=== PATIENT | male | born 1935 | race Caucasian/White ===

== ENCOUNTER 2022-01-01 00:33 | Inpatient (IN) | payer MEDICARE ==
[2022-01-01] VITALS (13 sets, daily range): BP systolic 90–128; BP diastolic 47–73
[~2022-01-01] VITALS: Ht 170.2 cm; Wt 108.9 kg
[2022-01-01] MEDS ORDERED: mag hydrox/Alum hydrox/simeth 30ml oral suspension PO PRN (03:25)
[2022-01-01] MEDS: normal saline 1000ml 1,000 ML IV SCH ×3 (03:25→23:57)
[2022-01-01] MEDS ORDERED: bisacodyl 10mg suppository rectal RC PRN (03:25)
[2022-01-01] MEDS ORDERED: acetaminophen 325mg tablet PO PRN ×2 (03:25)
[2022-01-01] MEDS ORDERED: ondansetron/PF 4mg/2ml inj IV PRN (03:25)
[2022-01-01] MEDS ORDERED: morphine 2 MG/ML inj. syringe IV PRN (03:25)
[2022-01-01] MEDS ORDERED: HYDROcodone/acetaminophen 5mg/325mg tablet PO PRN (03:25)
[2022-01-01] MEDS ORDERED: ondansetron 4mg rapidly disintigrating tab PO PRN (03:25)
[2022-01-01] MEDS ORDERED: diphenhydrAMINE 50 mg/ml inj IV PRN (03:25)
[2022-01-01] MEDS ORDERED: acetaminophen 650mg rectal suppository RC PRN (03:25)
[2022-01-01] MEDS ORDERED: diphenhydrAMINE 25mg capsule PO PRN (03:25)
[2022-01-01] MEDS ORDERED: magnesium hydroxide 30ml (MOM) UD suspension PO PRN (03:25)
[2022-01-01] MEDS ORDERED: PANT40TA54 PO (04:02)
[2022-01-01] MEDS ORDERED: FLO0.4C PO (04:02)
[2022-01-01] MEDS ORDERED: POTA-207 PO (04:02)
[2022-01-01] MEDS ORDERED: FURO40TA4 PO (04:02)
[2022-01-01] MEDS ORDERED: METO-395 PO (04:02)
[2022-01-01] MEDS ORDERED: WARF2.5T82 PO (04:02)
[2022-01-01] MEDS ORDERED: WARF-55 PO (04:02)
[2022-01-01] MEDS ORDERED: BUDE10.2 IH (04:02)
[2022-01-01] MEDS ORDERED: NIFE90TA61 PO (04:02)
[2022-01-01] MEDS ORDERED: PRED10TA PO (04:02)
[2022-01-01] MEDS ORDERED: LOSA25TA41 PO (04:02)
[2022-01-01] MEDS ORDERED: OXYB10TA30 PO (04:02)
[2022-01-01] MEDS ORDERED: PRE1T PO (04:02)
[2022-01-01] MEDS ORDERED: ASPI-611 PO (04:03)
[2022-01-01] MEDS ORDERED: phytonadione inj. 3 MG in normal saline 100ml IV soln 100 ML IV ONE (04:05)
[2022-01-01 05:22] LABS: MAGNESIUM 2.4 MG/DL (1.5-2.4); PHOSPHORUS 3.1 MG/DL (2.3-4.5)
[2022-01-01] MEDS: pantoprazole 40MG/NS 100ML BAG 100 ML IV SCH ×4 (06:19→20:27)
--- NOTE | 2022-01-01 06:34 | NUR ---
Patient in room PCU 3023. I have received report from Bentley and had the opportunity to ask questions and assume patient care.
[2022-01-01] MEDS: docusate sod 100mg capsule PO SCH ×2 (08:05→20:00)
[2022-01-01] MEDS ORDERED: potassium Cl 20 mEq SR tablet PO PRN (08:35)
[2022-01-01] MEDS ORDERED: magnesium Cl slow-release 64mg tablet PO PRN (08:35)
[2022-01-01] MEDS ORDERED: potassium Cl 40MEQ/1/2NS 520ml 520 ML IV PRN (08:35)
[2022-01-01] MEDS ORDERED: magnesium 4gm in 100ml NS 100 ML IV PRN (08:35)
[2022-01-01 08:37] LABS: APTT 28 SECONDS (22-32)
[2022-01-01 09:13] LABS: BASOPHILS % (AUTO) 0.4 % (0-1); EOSINOPHILS # (AUTO) 0.2 X10'3 (0-0.9); EOSINOPHILS % (AUTO) 2.7 % (0-6); HEMOGLOBIN 7.3 g/dl (14.0-17.9); LYMPHOCYTES # (AUTO) 0.4 X10'3 (1.1-4.8); LYMPHOCYTES % (AUTO) 5.7 % (21-51); MEAN CORPUSCULAR HGB CONC 33.6 g/dL (33.0-36.5); MEAN PLATELET VOLUME 7.5 FL (7.4-10.4); MONOCYTES # (AUTO) 0.5 X10'3 (0-0.9); MONOCYTES % (AUTO) 6.9 % (2-12); NEUTROPHILS # (AUTO) 5.9 X10'3 (1.8-7.7); NEUTROPHILS % (AUTO) 84.3 % (42-75); PLATELET COUNT 147 X10'3 (140-440); RED BLOOD COUNT 2.28 X10'6 (4.70-6.10); RED CELL DISTRIBUTION WIDTH 17.4 % (11.5-14.5)
[2022-01-01 09:18] LABS: HEMATOCRIT 21.7 % (42.0-52.0)
[2022-01-01] MEDS: oxybutynin 5mg tablet PO SCH ×2 (09:18→20:20)
[2022-01-01] MEDS: metoprolol succinate 25mg (24-HOUR) SR. Tablet PO SCH (09:18)
[2022-01-01] MEDS: tamsulosin 0.4mg capsule PO SCH (09:18)
[2022-01-01] MEDS: NIFEdipine XL 30mg tablet PO SCH (09:19)
--- NOTE | 2022-01-01 09:34 | NUR ---
Dr. Doty made aware via [facility] that patient had a critical hematocrit-21.7 called in at 0915 and his Hgb-7.3. Waiting for recommendations.
[2022-01-01 09:41] LABS: ALANINE AMINOTRANSFERASE 13 U/L (12-78); ALBUMIN 2.7 G/DL (3.4-5.0); ALBUMIN/GLOBULIN RATIO 1.2 (1.1-1.5); ALKALINE PHOSPHATASE 62 IU/L (46-116); ANION GAP 11 (8-16); ASPARTATE AMINO TRANSFERASE 11 U/L (10-37); BILIRUBIN,TOTAL 0.7 MG/DL (0.1-1.0); BLOOD UREA NITROGEN 26 MG/DL (7-18); CHLORIDE 113 MMOL/L (99-107); CREATININE 0.84 MG/DL (0.60-1.10); GLUCOSE 90 MG/DL (70-104); POTASSIUM 3.6 MMOL/L (3.5-5.1); SODIUM 147 MMOL/L (135-145); TOTAL CARBON DIOXIDE 23.5 MMOL/L (24-32); TOTAL PROTEIN 4.9 G/DL (6.4-8.2); eGFR 87 ML/MIN
[2022-01-01] MEDS ORDERED: fentaNYL/PF 50MCG/1 ML 2ML syringe ONE (11:55)
[2022-01-01] MEDS ORDERED: LIDOcaine Viscous 15ml cup ONE (11:56)
[2022-01-01] MEDS ORDERED: MIDAZolam 1 MG/ML 5ML VIAL ONE (11:56)
[2022-01-01 15:01] LABS: HEMOGLOBIN 7.3 g/dl (14.0-17.9); MEAN CORPUSCULAR HEMOGLOBIN 32.4 PG (27.0-31.0); MEAN CORPUSCULAR HGB CONC 33.7 g/dL (33.0-36.5); MEAN CORPUSCULAR VOLUME 96.1 FL (78-98); MEAN PLATELET VOLUME 7.2 FL (7.4-10.4); PLATELET COUNT 144 X10'3 (140-440); RED BLOOD COUNT 2.26 X10'6 (4.70-6.10); RED CELL DISTRIBUTION WIDTH 17.8 % (11.5-14.5); WHITE BLOOD COUNT 6.3 X10'3 (4.5-11.0)
[2022-01-01 15:08] LABS: HEMATOCRIT 21.7 % (42.0-52.0)
[2022-01-01] MEDS: albuterol 2.5 MG/3 ML nebule NEB SCH ×2 (16:46→20:30)
--- NOTE | 2022-01-01 16:52 | NUR ---
Dr. Doty made aware via [facility] messenger that patient's hematocrit-21.7 called in.
--- NOTE | 2022-01-01 17:10 | NUR ---
Patient returned from his procedure with no s/s of distress noted. He denied pain on arrival to the unit. Will continue to monitor.
--- NOTE | 2022-01-01 18:11 | NUR ---
Problems reprioritized. Patient report given, questions answered & plan of care reviewed with Jennyfer.
--- NOTE | 2022-01-01 18:41 | NUR ---
Patient in room PCU 3023. I have received report from MATHEW Novak and had the opportunity to ask questions and assume patient care.
[2022-01-01] MEDS ORDERED: non-formulary drug (Budesonide/Formoterol Fumarate (Symbicort 160-4.5 Mcg Inhaler) 2 PUFFS IH SCH (20:00)
[2022-01-01] MEDS: K and/or MAG REPLACEMENT MC SCH (20:00)
[2022-01-01] MEDS: budesonide 0.5mg/2ml UD nebule IH SCH (20:26)
[2022-01-01] MEDS ORDERED: temazepam 15mg capsule PO PRN (21:00)
[2022-01-01 21:03] LABS: HEMOGLOBIN 7.2 g/dl (14.0-17.9); MEAN CORPUSCULAR HGB CONC 33.1 g/dL (33.0-36.5); MEAN CORPUSCULAR VOLUME 96.8 FL (78-98); MEAN PLATELET VOLUME 7.6 FL (7.4-10.4); PLATELET COUNT 150 X10'3 (140-440); RED BLOOD COUNT 2.24 X10'6 (4.70-6.10); WHITE BLOOD COUNT 6.9 X10'3 (4.5-11.0)
[2022-01-01 21:15] LABS: HEMATOCRIT 21.7 % (42.0-52.0)
[2022-01-02] VITALS (11 sets, daily range): BP systolic 90–120; BP diastolic 36–56
[2022-01-02] MEDS: pantoprazole 40MG/NS 100ML BAG 100 ML IV SCH ×5 (01:00→21:26)
[2022-01-02 03:05] LABS: BASOPHILS % (AUTO) 0.3 % (0-1); EOSINOPHILS # (AUTO) 0.2 X10'3 (0-0.9); EOSINOPHILS % (AUTO) 2.7 % (0-6); LYMPHOCYTES # (AUTO) 0.6 X10'3 (1.1-4.8); LYMPHOCYTES % (AUTO) 10.2 % (21-51); MEAN CORPUSCULAR HGB CONC 33.3 g/dL (33.0-36.5); MEAN CORPUSCULAR VOLUME 96.1 FL (78-98); MEAN PLATELET VOLUME 7.5 FL (7.4-10.4); MONOCYTES # (AUTO) 0.5 X10'3 (0-0.9); MONOCYTES % (AUTO) 8.2 % (2-12); NEUTROPHILS # (AUTO) 4.5 X10'3 (1.8-7.7); NEUTROPHILS % (AUTO) 78.6 % (42-75); PLATELET COUNT 141 X10'3 (140-440); RED BLOOD COUNT 2.05 X10'6 (4.70-6.10); RED CELL DISTRIBUTION WIDTH 18.1 % (11.5-14.5); WHITE BLOOD COUNT 5.7 X10'3 (4.5-11.0)
[2022-01-02 03:20] LABS: HEMATOCRIT 19.7 % (42.0-52.0); HEMOGLOBIN 6.6 g/dl (14.0-17.9)
[2022-01-02 03:44] LABS: ALANINE AMINOTRANSFERASE 11 U/L (12-78); ALBUMIN 2.6 G/DL (3.4-5.0); ALBUMIN/GLOBULIN RATIO 1.2 (1.1-1.5); ALKALINE PHOSPHATASE 61 IU/L (46-116); ANION GAP 10 (8-16); ASPARTATE AMINO TRANSFERASE 13 U/L (10-37); BILIRUBIN,TOTAL 0.5 MG/DL (0.1-1.0); BLOOD UREA NITROGEN 25 MG/DL (7-18); BUN/CREATININE RATIO 27.5 (5.4-32.0); CALCIUM 7.7 MG/DL (8.5-10.1); CHLORIDE 115 MMOL/L (99-107); CREATININE 0.91 MG/DL (0.60-1.10); GLUCOSE 92 MG/DL (70-104); MAGNESIUM 2.4 MG/DL (1.5-2.4); PHOSPHORUS 3.9 MG/DL (2.3-4.5); POTASSIUM 3.7 MMOL/L (3.5-5.1); SODIUM 147 MMOL/L (135-145); TOTAL CARBON DIOXIDE 22.5 MMOL/L (24-32); TOTAL PROTEIN 4.7 G/DL (6.4-8.2); eGFR 79 ML/MIN
[2022-01-02 04:34] LABS: ANISOCYTOSIS 2+; HYPOCHROMASIA 1+; PLATELET ESTIMATE NORMAL; POLYCHROMASIA 1+
--- NOTE | 2022-01-02 07:00 | NUR ---
Problems reprioritized. Patient report given, questions answered & plan of care reviewed with MATHEW Novak.
[2022-01-02] MEDS ORDERED: non-formulary drug (Oxybutynin Chloride (Ditropan Xl) 1 TAB) PO SCH (08:00)
[2022-01-02] MEDS: K and/or MAG REPLACEMENT MC SCH ×2 (08:00→19:50)
[2022-01-02] MEDS: oxybutynin 5mg tablet PO SCH ×2 (08:41→19:54)
[2022-01-02] MEDS: tamsulosin 0.4mg capsule PO SCH (08:41)
[2022-01-02] MEDS: NIFEdipine XL 30mg tablet PO SCH (08:41)
[2022-01-02] MEDS: losartan 25mg tablet PO SCH (08:42)
[2022-01-02] MEDS: furosemide 40mg tablet PO SCH (08:42)
[2022-01-02] MEDS: docusate sod 100mg capsule PO SCH ×2 (08:42→19:53)
[2022-01-02] MEDS: metoprolol succinate 25mg (24-HOUR) SR. Tablet PO SCH (08:42)
[2022-01-02] MEDS: budesonide 0.5mg/2ml UD nebule IH SCH ×2 (09:00→20:42)
[2022-01-02] MEDS: albuterol 2.5 MG/3 ML nebule NEB SCH ×2 (10:01→14:54)
[2022-01-02] MEDS: normal saline 1000ml 1,000 ML IV SCH ×2 (13:01→21:26)
--- NOTE | 2022-01-02 13:20 | NUR ---
Blood transfusion completed. No s/s of transfusion reaction noted. Patient tolerates it well. Plan of care will continue.
[2022-01-02 14:48] LABS: HEMOGLOBIN 7.1 g/dl (14.0-17.9); MEAN CORPUSCULAR HEMOGLOBIN 31.9 PG (27.0-31.0); MEAN CORPUSCULAR HGB CONC 33.4 g/dL (33.0-36.5); MEAN CORPUSCULAR VOLUME 95.6 FL (78-98); MEAN PLATELET VOLUME 7.6 FL (7.4-10.4); PLATELET COUNT 133 X10'3 (140-440); RED BLOOD COUNT 2.23 X10'6 (4.70-6.10); RED CELL DISTRIBUTION WIDTH 17.7 % (11.5-14.5); WHITE BLOOD COUNT 6.6 X10'3 (4.5-11.0)
[2022-01-02 15:05] LABS: HEMATOCRIT 21.3 % (42.0-52.0)
--- NOTE | 2022-01-02 15:44 | NUR ---
Dr. Doty made aware via [facility] that patient's post hgb-7.3 and hct-21.3 called in by.
--- NOTE | 2022-01-02 18:44 | NUR ---
Problems reprioritized. Patient report given, questions answered & plan of care reviewed with Dipti.
[2022-01-02 20:56] LABS: HEMATOCRIT 22.1 % (42.0-52.0); HEMOGLOBIN 7.4 g/dl (14.0-17.9); MEAN CORPUSCULAR HEMOGLOBIN 31.7 PG (27.0-31.0); MEAN CORPUSCULAR HGB CONC 33.4 g/dL (33.0-36.5); MEAN PLATELET VOLUME 7.9 FL (7.4-10.4); PLATELET COUNT 142 X10'3 (140-440); RED BLOOD COUNT 2.32 X10'6 (4.70-6.10); RED CELL DISTRIBUTION WIDTH 18.3 % (11.5-14.5); WHITE BLOOD COUNT 7.3 X10'3 (4.5-11.0)
[2022-01-03] MEDS: pantoprazole 40MG/NS 100ML BAG 100 ML IV SCH ×5 (00:38→21:00)
[2022-01-03 02:00] VITALS: BP 122/63
[2022-01-03 06:57] LABS: BASOPHILS % (AUTO) 0.6 % (0-1); EOSINOPHILS # (AUTO) 0.3 X10'3 (0-0.9); EOSINOPHILS % (AUTO) 4.5 % (0-6); HEMOGLOBIN 7.3 g/dl (14.0-17.9); LYMPHOCYTES # (AUTO) 0.6 X10'3 (1.1-4.8); LYMPHOCYTES % (AUTO) 10.3 % (21-51); MEAN CORPUSCULAR HEMOGLOBIN 31.8 PG (27.0-31.0); MEAN CORPUSCULAR HGB CONC 33.2 g/dL (33.0-36.5); MEAN CORPUSCULAR VOLUME 95.7 FL (78-98); MEAN PLATELET VOLUME 7.8 FL (7.4-10.4); MONOCYTES # (AUTO) 0.6 X10'3 (0-0.9); MONOCYTES % (AUTO) 9.9 % (2-12); NEUTROPHILS # (AUTO) 4.6 X10'3 (1.8-7.7); NEUTROPHILS % (AUTO) 74.7 % (42-75); PLATELET COUNT 134 X10'3 (140-440); RED CELL DISTRIBUTION WIDTH 18.2 % (11.5-14.5); WHITE BLOOD COUNT 6.2 X10'3 (4.5-11.0)
[2022-01-03 07:00] VITALS: BP 119/58
[2022-01-03 07:19] LABS: ALANINE AMINOTRANSFERASE 16 U/L (12-78); ALBUMIN 2.4 G/DL (3.4-5.0); ALBUMIN/GLOBULIN RATIO 1.1 (1.1-1.5); ALKALINE PHOSPHATASE 65 IU/L (46-116); ANION GAP 9 (8-16); ASPARTATE AMINO TRANSFERASE 11 U/L (10-37); BILIRUBIN,TOTAL 0.5 MG/DL (0.1-1.0); BLOOD UREA NITROGEN 17 MG/DL (7-18); BUN/CREATININE RATIO 15.6 (5.4-32.0); CALCIUM 7.6 MG/DL (8.5-10.1); CHLORIDE 114 MMOL/L (99-107); CREATININE 1.09 MG/DL (0.60-1.10); GLUCOSE 104 MG/DL (70-104); MAGNESIUM 2.3 MG/DL (1.5-2.4); PHOSPHORUS 3.6 MG/DL (2.3-4.5); POTASSIUM 3.3 MMOL/L (3.5-5.1); SODIUM 147 MMOL/L (135-145); TOTAL CARBON DIOXIDE 23.8 MMOL/L (24-32); TOTAL PROTEIN 4.6 G/DL (6.4-8.2); eGFR 64 ML/MIN
--- NOTE | 2022-01-03 07:33 | NUR ---
Patient in room PCU 3023. I have received report from Dipti and had the opportunity to ask questions and assume patient care.
[2022-01-03] MEDS: NIFEdipine XL 30mg tablet PO SCH (08:00)
[2022-01-03] MEDS: losartan 25mg tablet PO SCH (08:00)
[2022-01-03] MEDS: K and/or MAG REPLACEMENT MC SCH ×2 (08:00→20:14)
[2022-01-03] MEDS: docusate sod 100mg capsule PO SCH ×2 (08:00→19:20)
[2022-01-03] MEDS: furosemide 40mg tablet PO SCH (08:00)
[2022-01-03] MEDS: budesonide 0.5mg/2ml UD nebule IH SCH ×2 (09:13→20:49)
[2022-01-03] MEDS: tamsulosin 0.4mg capsule PO SCH (09:25)
[2022-01-03] MEDS: metoprolol succinate 25mg (24-HOUR) SR. Tablet PO SCH (09:26)
[2022-01-03] MEDS: oxybutynin 5mg tablet PO SCH ×2 (09:27→19:19)
[2022-01-03 11:00] VITALS: BP 129/63
[2022-01-03 11:12] LABS: HEMATOCRIT 23.4 % (42.0-52.0); HEMOGLOBIN 7.6 g/dl (14.0-17.9); MEAN CORPUSCULAR HEMOGLOBIN 31.2 PG (27.0-31.0); MEAN CORPUSCULAR HGB CONC 32.6 g/dL (33.0-36.5); MEAN CORPUSCULAR VOLUME 95.7 FL (78-98); MEAN PLATELET VOLUME 7.7 FL (7.4-10.4); PLATELET COUNT 146 X10'3 (140-440); RED BLOOD COUNT 2.44 X10'6 (4.70-6.10); RED CELL DISTRIBUTION WIDTH 18.2 % (11.5-14.5); WHITE BLOOD COUNT 7.1 X10'3 (4.5-11.0)
[2022-01-03] MEDS ORDERED: PANT40TA54 PO (12:45)
[2022-01-03] MEDS ORDERED: FERR325T28 PO (12:49)
[2022-01-03 15:00] VITALS: BP 105/56
[2022-01-03] MEDS ORDERED: iohexol 300mg/ml 100ml inj. ONE (16:05)
--- NOTE | 2022-01-03 17:52 | NUR ---
1600 Protonix IV not administered. Patient was off the unit. Previous Protonix IV still infusing
[2022-01-03 18:00] VITALS: BP 124/58
--- NOTE | 2022-01-03 18:36 | NUR ---
Problems reprioritized. Patient report given, questions answered & plan of care reviewed with Whit.
[2022-01-03] MEDS: potassium Cl 20 mEq SR tablet PO PRN ×2 (20:12→20:13)
--- NOTE | 2022-01-03 21:25 | NUR ---
PROTONIX WAS NOT ADMINISTERED BECAUSE STILL HAVE ONE BAG RUNNING.
--- NOTE | 2022-01-03 21:31 | NUR ---
CHARGE NURSE JUST MENTION THE PANTAPRAZOLE IS CONTINUOUS. SO PROTONIX IS ADMINISTERED RIGHT NOW.
[2022-01-03 22:00] VITALS: BP 105/54
[2022-01-04] MEDS: pantoprazole 40MG/NS 100ML BAG 100 ML IV SCH ×2 (01:42→08:47)
[2022-01-04 02:00] VITALS: BP 135/60
--- NOTE | 2022-01-04 06:25 | NUR ---
Patient in room PCU 3023. I have received report from Whit and had the opportunity to ask questions and assume patient care.
[2022-01-04 07:00] VITALS: BP 140/66
[2022-01-04] MEDS: K and/or MAG REPLACEMENT MC SCH (08:00)
[2022-01-04 08:08] LABS: BASOPHILS % (AUTO) 0.5 % (0-1); EOSINOPHILS # (AUTO) 0.4 X10'3 (0-0.9); EOSINOPHILS % (AUTO) 6.1 % (0-6); HEMATOCRIT 24.1 % (42.0-52.0); LYMPHOCYTES # (AUTO) 0.8 X10'3 (1.1-4.8); LYMPHOCYTES % (AUTO) 11.5 % (21-51); MEAN CORPUSCULAR HEMOGLOBIN 31.8 PG (27.0-31.0); MEAN CORPUSCULAR HGB CONC 33.2 g/dL (33.0-36.5); MEAN CORPUSCULAR VOLUME 95.9 FL (78-98); MONOCYTES # (AUTO) 0.6 X10'3 (0-0.9); MONOCYTES % (AUTO) 8.9 % (2-12); NEUTROPHILS # (AUTO) 4.8 X10'3 (1.8-7.7); PLATELET COUNT 143 X10'3 (140-440); RED BLOOD COUNT 2.51 X10'6 (4.70-6.10); RED CELL DISTRIBUTION WIDTH 18.1 % (11.5-14.5); WHITE BLOOD COUNT 6.5 X10'3 (4.5-11.0)
[2022-01-04 08:48] VITALS: BP_SYST 140
[2022-01-04] MEDS: oxybutynin 5mg tablet PO SCH (08:48)
[2022-01-04] MEDS: tamsulosin 0.4mg capsule PO SCH (08:48)
[2022-01-04] MEDS: NIFEdipine XL 30mg tablet PO SCH (08:48)
[2022-01-04] MEDS: metoprolol succinate 25mg (24-HOUR) SR. Tablet PO SCH (08:48)
[2022-01-04] MEDS: losartan 25mg tablet PO SCH (08:48)
[2022-01-04] MEDS: docusate sod 100mg capsule PO SCH (08:49)
[2022-01-04] MEDS: furosemide 40mg tablet PO SCH (08:49)
[2022-01-04 09:06] LABS: ALANINE AMINOTRANSFERASE 14 U/L (12-78); ALBUMIN 2.6 G/DL (3.4-5.0); ALBUMIN/GLOBULIN RATIO 1.1 (1.1-1.5); ALKALINE PHOSPHATASE 68 IU/L (46-116); ANION GAP 9 (8-16); ASPARTATE AMINO TRANSFERASE 13 U/L (10-37); BILIRUBIN,TOTAL 0.5 MG/DL (0.1-1.0); BLOOD UREA NITROGEN 18 MG/DL (7-18); BUN/CREATININE RATIO 18.9 (5.4-32.0); CALCIUM 7.9 MG/DL (8.5-10.1); CHLORIDE 110 MMOL/L (99-107); CREATININE 0.95 MG/DL (0.60-1.10); GLUCOSE 84 MG/DL (70-104); MAGNESIUM 2.2 MG/DL (1.5-2.4); PHOSPHORUS 3.7 MG/DL (2.3-4.5); POTASSIUM 3.6 MMOL/L (3.5-5.1); SODIUM 143 MMOL/L (135-145); TOTAL PROTEIN 4.9 G/DL (6.4-8.2); eGFR 75 ML/MIN
[2022-01-04] MEDS: budesonide 0.5mg/2ml UD nebule IH SCH (09:14)
--- NOTE | 2022-01-04 13:10 | NUR ---
Spoke with , Sylvia and discussed POC and discharge instruction. Patient and family members are aware of discharge plans. All medications were sent to [facility] and confirmed. A follow up appt is needed with primary on [place] and a referral to a welding manager. We will continue to monitor.
--- NOTE | 2022-01-04 14:07 | NUR ---
Patient OK to discharge per MD orders. IV was removed and tolerated well. Tele returned. All discharge instructions were educated and all questions answered. Pt requested , Sylvia to be called and all instructions gone over. Medications were discussed and transmitted over to pharmacy. Resident was able to dress self, transfer into and transported to front Lobby into a family vehicle to go home. Family and patient are aware, to call Thursday for a follow up and also refer for a plaster patternmaker. All personal items were collected bagged and sent with pt with all paperwork.
--- NOTE | 2022-01-04 16:14 | NUR ---
Patient d/c to go home with d/c instructions/directions printed and given by resource nurse-Jennifer. IV line removed. [facility] all personal belongings by PCT with no s/s of distress noted.
== END 2022-01-04 14:13 | disposition home or self-care (01) | DRG 917 ==
LOC: PCU 3S 03:28
PROVIDERS: ADMIT Family Medicine; ATTEND Family Medicine
PROC: 0W3P8ZZ Control Bleeding in Gastrointestinal Tract, Via Natural or Artificial Opening Endoscopic (ICD-10-PCS; principal; 2022-01-01)
PROC: 30233N1 Transfusion of Nonautologous Red Blood Cells into Peripheral Vein, Percutaneous Approach (ICD-10-PCS; 2022-01-02)
PROC: BW241ZZ Computerized Tomography (CT Scan) of Chest and Abdomen using Low Osmolar Contrast (ICD-10-PCS; 2022-01-03)
DX: T45.511A Poisoning by anticoagulants, accidental (unintentional), initial encounter (principal); K31.811 Angiodysplasia of stomach and duodenum with bleeding; I82.502 Chronic embolism and thrombosis of unspecified deep veins of left lower extremity; Z20.822 Contact with and (suspected) exposure to COVID-19; I50.9 Heart failure, unspecified; D50.0 Iron deficiency anemia secondary to blood loss (chronic); E66.01 Morbid (severe) obesity due to excess calories; J44.9 Chronic obstructive pulmonary disease, unspecified; R91.8 Other nonspecific abnormal finding of lung field; G70.00 Myasthenia gravis without (acute) exacerbation; I11.0 Hypertensive heart disease with heart failure; I25.10 Atherosclerotic heart disease of native coronary artery without angina pectoris; I25.2 Old myocardial infarction; Z79.01 Long term (current) use of anticoagulants; Z95.0 Presence of cardiac pacemaker; Z95.2 Presence of prosthetic heart valve; Z88.8 Allergy status to other drugs, medicaments and biological substances; Z79.899 Other long term (current) drug therapy; Z79.82 Long term (current) use of aspirin; Z68.37 Body mass index [BMI] 37.0-37.9, adult; Y92.89 Other specified places as the place of occurrence of the external cause
CPT/HCPCS: 36415; 36430; 43227; 43255; 71045; 71260; 80053; 83690; 83735; 83880; 84100; 84484; 85008; 85025; 85027; 85610; 85730; 86885; 86900; 86901; 86920; 87081; 87635; 94640; 94760; 99152; 99153; A4620; C9113; G0378; J2250; J3010; J3430; J3490; J7030; J7040; P9016; Q9967